=== PATIENT | female | born 1985 | race Caucasian/White ===

== ENCOUNTER 2024-02-07 18:36 | Emergency (ER) | payer BC, SELFPAY ==
[2024-02-07 18:42] VITALS: BP 126/98
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
[2024-02-07] MEDS: ROXICODONE 5 MG PO (19:49)
[2024-02-07] MEDS: TYLENOL 1000 MG PO (19:49)
[2024-02-07] MEDS: ZOFRAN ODT (ORALLY DISINTEGRATING) 4 MG PO (19:53)
[2024-02-07] MEDS: MOTRIN 600 MG PO (21:53)
[2024-02-07] MEDS: ADACEL 0.5 ML IM (21:56)
[2024-02-07 22:22] VITALS: BP 124/68
== END 2024-02-07 22:23 | disposition home or self-care (01) ==
LOC: EMR 18:36
PROVIDERS: EMERGENCY PHYSICIAN Emergency Medicine; FAMILY PHYSICIAN Nurse Practitioner Family
DX: S52.125A Nondisplaced fracture of head of left radius, initial encounter for closed fracture (principal); S06.0X9A Concussion with loss of consciousness of unspecified duration, initial encounter; S02.5XXA Fracture of tooth (traumatic), initial encounter for closed fracture; S01.81XA Laceration without foreign body of other part of head, initial encounter; S00.81XA Abrasion of other part of head, initial encounter; S40.211A Abrasion of right shoulder, initial encounter; S20.314A Abrasion of middle front wall of thorax, initial encounter; M25.512 Pain in left shoulder; M25.532 Pain in left wrist; R11.0 Nausea; V18.2XXA Unspecified pedal cyclist injured in noncollision transport accident in nontraffic accident, initial encounter; Y93.55 Activity, bike riding; M50.221 Other cervical disc displacement at C4-C5 level; M48.02 Spinal stenosis, cervical region; G47.411 Narcolepsy with cataplexy; Z87.891 Personal history of nicotine dependence
CPT/HCPCS: 99285; 29505; 12013; 90471; 70450; 70486; 72125; 73030; 73060; 73080; 73110; 90715

== ENCOUNTER → 2024-09-05 13:18 | Outpatient (REF) | payer BC, SELFPAY | LOC: RAD 13:18 | PROVIDERS: ATTENDING PHYSICIAN Nurse Practitioner Family; FAMILY PHYSICIAN Nurse Practitioner Family | DX: E04.1 Nontoxic single thyroid nodule (principal) | CPT/HCPCS: 76536 ==